=== PATIENT | male | born 1985 | race Hispanic/Latino ===

== ENCOUNTER 2022-05-31 09:08 | Inpatient (IN) | payer OTHER, SELFPAY ==
[2022-05-31] VITALS (21 sets, daily range): BP systolic 106–123; BP diastolic 56–86; PULSE 72–91; RESP 15–30; TEMP 36.6–38.1; O2SAT 96–99; BMI 36.2
[2022-05-31 09:53] LABS: Add Manual Diff / Slide Review NO; Basophils Absolute Auto 0 /uL (0-100); Basophils Percent Auto 0.3 % (0-2); Eosinophils Absolute Auto 0 /uL (0-450); Eosinophils Percent Auto 0.2 % (2-4); Hematocrit 45.1 % (41-53); Hemoglobin 15.3 g/dL (13.5-17.5); Lymphocytes Absolute Auto 1400 /uL (1100-4500); Mean Corpuscular Hemoglobin 29.3 PG (26-34); Mean Corpuscular Volume 86.3 fL (80-100); Monocytes Absolute Auto 1100 /uL (0-900); Monocytes Percent Auto 7.7 % (3-14); Neutrophils Absolute Auto 11700 /uL (1500-7000); Neutrophils Percent Auto 81.8 % (50-75); Platelet Count 351 X10^3/uL (150-400); Red Blood Cell Count 5.23 X10^6/uL (4.5-5.9); Red Cell Distribution Width 13.2 % (11.6-14.8); White Blood Cell Count 14.4 X10^3/uL (4.5-11.0)
[2022-05-31 10:04] LABS: Appearance Urine UA CLEAR; Bilirubin Urine UA NEGATIVE (NEGATIVE); Color Urine UA YELLOW; Glucose Urine UA NEGATIVE (Negative); Ketones Urine UA NEGATIVE (NEGATIVE); Leukocyte Esterase Urine UA NEGATIVE (NEGATIVE); Nitrite Urine UA NEGATIVE (Negative); Occult Blood Urine UA NEGATIVE (Negative); Protein Urine UA NEGATIVE (Negative); Specific Gravity Urine UA >=1.030 (1.000-1.035); pH Urine UA 5.5 (4.5-8.0)
[2022-05-31 10:07] LABS: Lactate (Lactic Acid) 1.1 mmol/L (0.7-2.1)
[2022-05-31 10:08] LABS: Alanine Aminotransferase 61 IU/L (<50); Albumin 4.5 g/dL (3.5-5.0); Albumin Globulin Ratio 1.2 (1.0-2.8); Alkaline Phosphatase 180 U/L (38-126); Aspartate Aminotransferase 57 IU/L (17-59); Bilirubin Total 1.6 mg/dL (0.2-1.3); Blood Urea Nitrogen 12 mg/dL (9-20); Calcium 9.1 mg/dL (8.4-10.2); Carbon Dioxide 25 mmol/L (22-32); Chloride 99 mmol/L (98-107); Creatine Kinase 43 U/L (55-170); Estimated Glomerular Filt Rate > 60 mL/min (>60); Globulin 3.8 g/dL (1.7-4.1); Glucose 100 mg/dL (70-100); HEMOLYSIS < 15 (0-50); Lipase 31 U/L (23-300); Sodium 138 mmol/L (137-145); Total Protein 8.3 g/dL (6.3-8.2)
[2022-05-31 10:15] LABS: Bacteria Urine Few (2-10); Culture Indicated Urine Cult Not Indicated; Mucus Urine 2+ (Negative); RBC Urine None Seen (0-5/HPF); Squamous Epithelial Cell Urine None Seen (0-5/HPF); WBC Urine 0-1/HPF (0-5/HPF)
[2022-05-31 10:24] LABS: Procalcitonin 0.09 ng/mL (<0.5)
--- NOTE | 2022-05-31 10:37 | DI.CT.S_ITS ---
PROCEDURE: CT ABDOMEN PELVIS W CON INDICATIONS: suprapubic pain x 2 weeks TECHNIQUE: After the administration of oral and IV contrast, axial sections were acquired from the lung bases to the pubic symphysis. Coronal and sagittal reformats were performed. For radiation dose reduction, the following was used: automated exposure control, adjustment of mA and/or kV according to patient size. COMPARISON: None. FINDINGS: Image quality: Excellent. Lung bases: Unremarkable. Heart: No significant findings. ABDOMEN: Liver: Unremarkable. Gallbladder: Unremarkable. Biliary ducts: Unremarkable. Pancreas: Unremarkable. Spleen: Unremarkable. Adrenal Glands: Unremarkable. Kidneys and Ureters: Unremarkable. Stomach and Bowel: Stomach, small bowel loops, and colon are normal in caliber. There multiple colonic diverticula. There is segmental thickening of the sigmoid colon with associated inflammatory stranding, compatible with acute diverticulitis. There is a small irregular fluid collection within the mesentery adjacent to the sigmoid colon measuring 2.7 x 2.5 cm, suspicious for phlegmon or early abscess formation. No drainable fluid collections. Appendix is normal. There is a trace amount of free fluid adjacent to the appendix, likely secondary to spread of inflammation/infection from acute diverticulitis. Peritoneum: Trace abnormal intraperitoneal fluid. No free air. Ventral Wall: No hernia. Abdominal Nodes: No retroperitoneal or mesenteric adenopathy by size criteria. Vessels: Aorta and inferior vena cava are normal in size. PELVIS: Pelvic Organs: Unremarkable. Bladder: Unremarkable. Pelvic Nodes: No enlarged lymph nodes. Miscellaneous: No inguinal hernias are seen. Bones: Unremarkable. IMPRESSION: 1. Colonic diverticula are present. There is segmental thickening of the sigmoid colon with associated inflammatory stranding consistent with acute diverticulitis. A small 2.7 x 2.5 cm irregular fluid collection is seen within the mesentery adjacent to the sigmoid colon, compatible with phlegmon or early abscess. There are no percutaneously drainable fluid collections. After adequate treatment of acute illness, a repeat CT suggested as colon cancer could have a similar CT appearance. 2. Dictated by: Ludmila Kruse M.D. on 05/31/2022 at 11:44 Approved by: Ludmila Kruse M.D. on 05/31/2022 at 11:50
--- NOTE | 2022-05-31 10:37 | ED_ITS ---
HPI - Abdominal Pain General Chief Complaint: Abdominal Pain Stated Complaint: severe abd pain as of 2 days ago, no bow movement Time Seen by Provider: 05/31/22 09:30 Source: patient Mode of arrival: Ambulatory History of Present Illness HPI narrative: Patient is a 36-year-old male with no past medical history presenting with lower abdominal pain ongoing for the last 2 weeks. He was seen and evaluated at the [facility] couple of times for the same. He was put on a 5 day course of antibiotics which she finished for a possible UTI. He continued to have pain all across his lower abdomen. He is scheduled for a CT this week. He had a fever yesterday of 100.5. He says that the last 2 days he is had some mucousy like stool previously we he was having normal bowel movements. No nausea no vomiting no chest pain or shortness of breath. Not complaining of painful frequent urination. He noticed yesterday when he sat down he was having a little bit of scrotal irritation but not significant or localized testicular pain. Denies any flank pain. Related Data Home Medications Medication Instructions Recorded Confirmed No Known Home Medications 05/31/22 05/31/22 Allergies Allergy/AdvReac Type Severity Reaction Status Date / Time No Known Drug Allergies Allergy Verified 05/31/22 09:28 Review of Systems Review of Systems ROS Unobtainable: All systems reviewed & are unremarkable except as noted in HPI and below Patient History Social History household members: spouse Smoking Status: Smoker, status unknown tobacco type: smokeless tobacco alcohol intake frequency: other Substance Use Type: does not use Exam Initial Vital Signs Initial Vital Signs: Vital Signs Temperature 97.9 F 05/31/22 09:22 Pulse Rate 82 05/31/22 09:22 Respiratory Rate 18 05/31/22 09:22 Blood Pressure 121/86 05/31/22 09:22 Pulse Oximetry 99 05/31/22 09:22 Oxygen Delivery Method 05/31/22 09:22 GENERAL: Alert pleasant 86-year-old male and in no acute distress. HEENT: Head atraumatic,EOMI, pupils reactive, face symmetric, moist mucous membranes CARDIOVASCULAR: Regular rate and rhythm without murmurs, rubs or gallops. RESPIRATORY: Breath sounds equal bilaterally, no wheezes rales or rhonchi. ABDOMEN: Soft, mild suprapubic lower quadrant pain no guarding no rebound : No CVA tenderness EXTREMITIES: Normal range of motion, no clubbing or edema. Neurovascularly intact NEUROLOGICAL: Alert and oriented x4. SKIN: Warm, dry, no laceration, no petechiae, no rashes or lesions. Course Orders Ordered: ED Orders 05/31/22 10:37 CT abdomen pelvis w con Stat 05/31/22 12:30 COVID19 -Nasal RAPID/Pre-Proc Stat Sodium Chloride (Normal Saline 0.9%) 1,000 mls @ 150 mls/hr IV CONT TREMAYNE Last Admin: 05/31/22 12:42 Dose: 150 mls/hr Documented By: PILY Discontinued Medications Sodium Chloride (Normal Saline 0.9%) 1,000 mls @ 1,000 mls/hr IV BOLUS ONE Stop: 05/31/22 11:56 Last Infusion: 05/31/22 12:05 Dose: 0 mls/hr Documented By: Admin: 05/31/22 10:58 Dose: 1,000 mls/hr Documented By: PILY Piperacillin Sod/Tazobactam (Sod 4.5 gm/ Sodium Chloride) 100 mls @ 200 mls/hr IV NOW ONE Stop: 05/31/22 12:26 Last Infusion: 05/31/22 13:25 Dose: 0 mls/hr Documented By: Admin: 05/31/22 12:41 Dose: 200 mls/hr Documented By: PILY Vital Signs Vital signs: Vital Signs - 8 hr 05/31/22 11:30 Pulse Rate 79 Pulse Oximetry 99 MDM - Abdominal Pain Lab Data 05/31/22 09:40 05/31/22 09:40 Labs: Lab Results 05/31/22 05/31/22 05/31/22 Range/Units 09:40 09:40 09:40 WBC 14.4 H (4.5-11.0) X10^3/uL RBC 5.23 (4.5-5.9) X10^6/uL Hgb 15.3 (13.5-17.5) g/dL Hct 45.1 (41-53) % MCV 86.3 (80-100) fL MCH 29.3 (26-34) PG MCHC 34.0 (30-36) % RDW 13.2 (11.6-14.8) % Plt Count 351 (150-400) X10^3/uL Neut % (Auto) 81.8 H (50-75) % Lymph % (Auto) 10.0 L (25-40) % [place] % (Auto) 7.7 (3-14) % Eos % (Auto) 0.2 L (2-4) % Baso % (Auto) 0.3 (0-2) % Neut # (Auto) 54959 H (8466-3097) /uL Lymph # (Auto) 1400 (5100-4221) /uL [place] # (Auto) 1100 H (0-900) /uL Eos # (Auto) 0 (0-450) /uL Baso # (Auto) 0 (0-100) /uL Sodium 138 (137-145) mmol/L Potassium 4.0 (3.4-5.1) mmol/L Chloride 99 (98-107) mmol/L Carbon Dioxide 25 (22-32) mmol/L BUN 12 (9-20) mg/dL Creatinine 0.86 (0.66-1.25) mg/dL Estimated GFR > 60 (>60) mL/min BUN/Creatinine Ratio 14.0 (6-22) Glucose 100 (70-100) mg/dL Lactate 1.1 (0.7-2.1) mmol/L Calcium 9.1 (8.4-10.2) mg/dL Total Bilirubin 1.6 H (0.2-1.3) mg/dL AST 57 (17-59) IU/L ALT 61 H (<50) IU/L Alkaline Phosphatase 180 H (38-126) U/L Total Creatine Kinase 43 L (55-170) U/L Total Protein 8.3 H (6.3-8.2) g/dL Albumin 4.5 (3.5-5.0) g/dL Globulin 3.8 (1.7-4.1) g/dL Albumin/Globulin Ratio 1.2 (1.0-2.8) Lipase 31 (23-300) U/L Procalcitonin (<0.5) ng/mL Urine Color Urine Appearance Urine pH (4.5-8.0) Ur Specific [place] (1.000-1.035) Urine Protein (Negative) Urine Glucose (UA) (Negative) g/dL Urine Ketones (NEGATIVE) Urine Occult Blood (Negative) Urine Nitrate (Negative) Urine Bilirubin (NEGATIVE) Urine Urobilinogen (0.2) E.U./dL Ur Leukocyte Esterase (NEGATIVE) Urine RBC (0-5/HPF) Urine WBC (0-5/HPF) Ur Squamous Epith Cells (0-5/HPF) Urine Bacteria (None) Urine Mucus (Negative) Ur Culture Indicated? 05/31/22 05/31/22 Range/Units 09:40 09:50 WBC (4.5-11.0) X10^3/uL RBC (4.5-5.9) X10^6/uL Hgb (13.5-17.5) g/dL Hct (41-53) % MCV (80-100) fL MCH (26-34) PG MCHC (30-36) % RDW (11.6-14.8) % Plt Count (150-400) X10^3/uL Neut % (Auto) (50-75) % Lymph % (Auto) (25-40) % [place] % (Auto) (3-14) % Eos % (Auto) (2-4) % Baso % (Auto) (0-2) % Neut # (Auto) (9231-4559) /uL Lymph # (Auto) (8695-4204) /uL [place] # (Auto) (0-900) /uL Eos # (Auto) (0-450) /uL Baso # (Auto) (0-100) /uL Sodium (137-145) mmol/L Potassium (3.4-5.1) mmol/L Chloride (98-107) mmol/L Carbon Dioxide (22-32) mmol/L BUN (9-20) mg/dL Creatinine (0.66-1.25) mg/dL Estimated GFR (>60) mL/min BUN/Creatinine Ratio (6-22) Glucose (70-100) mg/dL Lactate (0.7-2.1) mmol/L Calcium (8.4-10.2) mg/dL Total Bilirubin (0.2-1.3) mg/dL AST (17-59) IU/L ALT (<50) IU/L Alkaline Phosphatase (38-126) U/L Total Creatine Kinase (55-170) U/L Total Protein (6.3-8.2) g/dL Albumin (3.5-5.0) g/dL Globulin (1.7-4.1) g/dL Albumin/Globulin Ratio (1.0-2.8) Lipase (23-300) U/L Procalcitonin 0.09 (<0.5) ng/mL Urine Color Yellow Urine Appearance Clear Urine pH 5.5 (4.5-8.0) Ur Specific [place] >=1.030 H (1.000-1.035) Urine Protein Negative (Negative) Urine Glucose (UA) Negative (Negative) g/dL Urine Ketones Negative (NEGATIVE) Urine Occult Blood Negative (Negative) Urine Nitrate Negative (Negative) Urine Bilirubin Negative (NEGATIVE) Urine Urobilinogen 1.0 (0.2) E.U./dL Ur Leukocyte Esterase Negative (NEGATIVE) Urine RBC None seen (0-5/HPF) Urine WBC 0-1/hpf (0-5/HPF) Ur Squamous Epith Cells None seen (0-5/HPF) Urine Bacteria Few (2-10) H (None) Urine Mucus 2+ H (Negative) Ur Culture Indicated? Cult not indicated MDM Narrative Medical decision making narrative: Patient healthy 36-year-old male ongoing abdominal discomfort the last 2 weeks. He was previously on antibiotics symptoms did not improve. Developed fever yesterday. He is tender across his lower abdomen. Found have leukocytosis of 14 without elevated lactate or procalcitonin. Urinalysis does have bacteria but no leukocytes or nitrates. Started having some mucousy like stools yesterday as well. Electrolytes today are reassuring. Bilirubin today is 1.6, ALT patient is offered Toradol for pain however he declines at this time. CT does show diverticulitis with abscess. He is given Zosyn. I discussed case with Dr. Higuera call surgery who is happy to accept. Discharge Plan Departure Patient Disposition: Admitted as Observation Clinical Impression: Diverticulitis of intestine with abscess Admit Date/Time: 05/31/22 12:29 Admit Provider: Efraín Higuera
[2022-05-31] MEDS: SODIUM CHLORIDE 0.9% 1,000 ML 1000 ML IV (10:58)
[2022-05-31] MEDS: PIPERACILLIN/TAZO 4.5 GM in SODIUM CHLORIDE 0.9% 100 ML IV (12:41)
[2022-05-31] MEDS: SODIUM CHLORIDE 0.9% 1,000 ML 150 ML IV (12:42)
[2022-05-31 13:15] LABS: COVID19 -Nasal RAPID Negative (Negative)
[2022-05-31] MEDS: IBUPROFEN 600 MG TABLET PO (21:26)
[2022-05-31] MEDS: ACETAMINOPHEN 325 MG TABLET 650 MG PO (21:26)
[2022-05-31] MEDS: LACTATED RINGERS 1,000 ML 100 ML IV (21:27)
[2022-05-31] MEDS: PIPERACILLIN/TAZO 3.375 GM in SODIUM CHLORIDE 0.9% 100 ML IV (23:08)
[2022-06-01] VITALS (12 sets, daily range): BP systolic 93–143; BP diastolic 54–76; PULSE 60–82; RESP 16–19; TEMP 35.9–37.5; O2SAT 96–100
[2022-06-01] MEDS: IBUPROFEN 600 MG TABLET PO ×3 (03:02→20:40)
[2022-06-01] MEDS: ACETAMINOPHEN 325 MG TABLET 650 MG PO ×2 (03:02→07:59)
[2022-06-01] MEDS: PIPERACILLIN/TAZO 3.375 GM in SODIUM CHLORIDE 0.9% 100 ML IV ×3 (06:07→20:36)
[2022-06-01 06:49] LABS: BUN Creatinine Ratio 13.8 (6-22); Blood Urea Nitrogen 11 mg/dL (9-20); Calcium 8.2 mg/dL (8.4-10.2); Carbon Dioxide 25 mmol/L (22-32); Chloride 106 mmol/L (98-107); Estimated Glomerular Filt Rate > 60 mL/min (>60); Glucose 92 mg/dL (70-100); HEMOLYSIS < 15 (0-50); Potassium 3.6 mmol/L (3.4-5.1); Sodium 139 mmol/L (137-145)
[2022-06-01 06:54] LABS: Add Manual Diff / Slide Review NO; Basophils Absolute Auto 0 /uL (0-100); Basophils Percent Auto 0.2 % (0-2); Eosinophils Absolute Auto 100 /uL (0-450); Eosinophils Percent Auto 0.7 % (2-4); Hematocrit 39.2 % (41-53); Hemoglobin 13.6 g/dL (13.5-17.5); Lymphocytes Absolute Auto 1400 /uL (1100-4500); Lymphocytes Percent Auto 13.7 % (25-40); Mean Corpuscular HGB Conc 34.6 % (30-36); Mean Corpuscular Hemoglobin 29.6 PG (26-34); Mean Corpuscular Volume 85.7 fL (80-100); Monocytes Absolute Auto 1000 /uL (0-900); Monocytes Percent Auto 9.6 % (3-14); Neutrophils Absolute Auto 7500 /uL (1500-7000); Neutrophils Percent Auto 75.8 % (50-75); Platelet Count 299 X10^3/uL (150-400); Red Blood Cell Count 4.58 X10^6/uL (4.5-5.9); Red Cell Distribution Width 12.9 % (11.6-14.8); White Blood Cell Count 9.9 X10^3/uL (4.5-11.0)
[2022-06-01] MEDS: LACTATED RINGERS 1,000 ML 100 ML IV (08:00)
[2022-06-01] MEDS: HYDROMORPHONE 1 MG INJ IV ×2 (08:03→15:02)
[2022-06-01] MEDS: ENOXAPARIN 40 MG/0.4 ML SYRINGE SUBCUT (10:16)
--- NOTE | 2022-06-01 13:45 | CM.DANOTE ---
Patient is a 36 yo male who was admitted on 05/31/22 for Severe Abd Pain. Pt has [employer] for insurance and his PCP is at the [facility]. EMR was reviewed. Per ED MD, Surgeon accepted admission for leukocytosis, diverticulitis. Surgeon Consult pending to determine course of treatment needed. SW met briefly bedside with pt and explained role and he confirms he lives in [place] with his spouse and is an active [employer] and works and is independent with ADL's at baseline. Pt has no hx of admission, HH or SNF and preference is home via family POV and does not anticipate any needs. Plan: SW to follow closely for Surgeon recommendations towards determining any discharge planning needs. [facility] Discharge Planning/Care Management CM Discharge Assessment Start: 06/01/22 13:42 Freq: Status: Active Protocol: Document 06/01/22 13:42 BF (Rec: 06/01/22 13:43 BF [id number]) Discharge Planning Assessment Assigned [employer] [facility] DPOA/Assigned Designee Name informally spouse Advance Directives? No Advance Directives on File No History Provided By Patient,Medical Record Has Patient been admitted in last 30 No days? Prior Living Arrangements House Household Members spouse Type of transporation used prior to Drives own vehicle admit Independent with ADL's Yes Is patient alert and oriented? Yes Barriers to Discharge No Discharge Plan Home Transportation Arrangement Likely spouse to transport at d/c Referrals Initiated None needed Additional Comment Pending Surgeon recommendations Review Status In Process Please Provide Date Initial DC 06/01/22 Assessment Was Performed Next Review Type Continued Stay Review
--- NOTE | 2022-06-01 14:10 | P.HP_ITS ---
History of Present Illness History of Present Illness Date Patient Seen: 06/01/22 Chief complaint: severe abd pain as of 2 days ago, no bow movement Narrative: Mr. Boykin is a 36-year-old male who presented to the emergency room with abdominal pain. Says he is not been well for at least 2 weeks now. It started out with chills and pain in his joints as well as frequent urination and fever. He was diagnosed with a urinary tract infection versus other gi infection and was given 5 days of antibiotics. After that he has noticed just slow progressive worsening of his abdominal pain since then. The pain has progressed to the point where especially it is uncomfortable when he is urinating. He describes the pain is ?needles? also has the same needle like pain in his lower abdomen when he passes a bowel movement. Because the pain is just continuing to worsen and worsen he came to the emergency room to be evaluated. CT scan showed diverticulitis with a localized fluid collection. 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 No problems with anesthesia with those surgeries or in his family history. His father did get diagnosed with colon cancer in his early 40s and had an operation at the time. His father has been recently looking unwell and he wonders if the cancer is come back but he knows that it previously had been cured. He himself has never had a colonoscopy. He is feeling a lot better today than he was when he presented into the emergency room. He says his pain is much improved. He is feeling very hungry. Patient History Family & Social History Social History: household members spouse Prior Living Arrangements House Safety & Behavioral: Feels Safe in Current Yes Environment Been Physically Hurt or No Threatened By a Person Tobacco & Substance use: Tobacco type cigarettes,smokeless tobacco Smoking Status Smoker, status unknown alcohol intake frequency other Substance Use Type does not use Meds Home Medications and Allergies Home Medications Medication Instructions Recorded Confirmed Type No Known Home Medications 05/31/22 05/31/22 History Allergies Allergy/AdvReac Type Severity Reaction Status Date / Time No Known Drug Allergies Allergy Verified 05/31/22 09:28 Exam Vital Signs (past 8 hours): - 06/01/22 07:50 06/01/22 12:00 Temperature 96.6 F L 97.5 F L Pulse Rate 66 64 Respiratory Rate 18 16 Blood Pressure 99/54 L 93/64 Pulse Oximetry 98 99 Oxygen Flow Rate 0 0 Oxygen Delivery Method Room Air Oxygen Flow Rate 0 Const General: cooperative, healthy appearing and comfortable [facility] Head: normal to inspection and normocephalic Resp Effort & Inspection: normal respiratory effort and able to speak in complete sentences Cardio Pulses: radial pulses present GI Palpation: soft and tender (Especially left lower quadrant. Moderate tenderness bilateral lower quadra) Neuro General: patient alert, patient awake, patient oriented x3 and gait normal Objective Labs 06/01/22 06:04 06/01/22 06:04 Labs: Laboratory Results - last 24 hr 06/01/22 06/01/22 06:04 06:04 WBC 9.9 RBC 4.58 Hgb 13.6 Hct 39.2 L MCV 85.7 MCH 29.6 MCHC 34.6 RDW 12.9 Plt Count 299 Neut % (Auto) 75.8 H Lymph % (Auto) 13.7 L [place] % (Auto) 9.6 Eos % (Auto) 0.7 L Baso % (Auto) 0.2 Neut # (Auto) 7500 H Lymph # (Auto) 1400 [place] # (Auto) 1000 H Eos # (Auto) 100 Baso # (Auto) 0 Sodium 139 Potassium 3.6 Chloride 106 Carbon Dioxide 25 BUN 11 Creatinine 0.80 Estimated GFR > 60 BUN/Creatinine Ratio 13.8 Glucose 92 Calcium 8.2 L Assessment & Plan Assessment and plan (1) Diverticulitis of intestine with abscess: Status: Acute Plan I recommend IV antibiotics. And advance diet as tolerated. We will follow his white blood cell count and when his pain is under control his white count is normal and he is tolerating regular food he can be discharged home with a 10-14 day course of antibiotics. Sometime in that 10-14 day range she should follow up general surgery clinic to arrange a colonoscopy. Also if he is not significantly prove improved in his pain repeat CT scan might be indicated in that timeframe. If for any reason things go in the wrong direction he should call and contact us. He has something important that needs to be done on Wednesday and is planning to try to be ready for discharge on Wednesday that is tomorrow. I did encourage him to understand that he has bad infection and that it may take time for him to recover but we will see how he does and if he is meeting discharge criteria tomorrow then we will send him home. Time Spent With Patient Critical Care time: I spent a total of [] minutes of critical care time on this patient's care today; this time is exclusive of procedural time. Quality VTE Deep Vein Thrombosis/Pulmonary Embolism Present on Admission: No
[2022-06-01] MEDS: PSYLLIUM HUSK 1 PACKET PO ×2 (15:04→20:37)
[2022-06-02 01:00] VITALS: BP 100/66; PULSE 75; RESP 17; TEMP 36.3; O2SAT 99
[2022-06-02 03:00] VITALS: O2SAT 99
[2022-06-02 04:39] LABS: Add Manual Diff / Slide Review NO; Basophils Absolute Auto 0 /uL (0-100); Basophils Percent Auto 0.3 % (0-2); Eosinophils Absolute Auto 100 /uL (0-450); Eosinophils Percent Auto 1.3 % (2-4); Hematocrit 40.2 % (41-53); Hemoglobin 13.8 g/dL (13.5-17.5); Lymphocytes Absolute Auto 1600 /uL (1100-4500); Lymphocytes Percent Auto 25.6 % (25-40); Mean Corpuscular HGB Conc 34.4 % (30-36); Mean Corpuscular Hemoglobin 29.4 PG (26-34); Mean Corpuscular Volume 85.3 fL (80-100); Monocytes Absolute Auto 600 /uL (0-900); Monocytes Percent Auto 9.9 % (3-14); Neutrophils Absolute Auto 3900 /uL (1500-7000); Neutrophils Percent Auto 62.9 % (50-75); Platelet Count 318 X10^3/uL (150-400); Red Cell Distribution Width 12.9 % (11.6-14.8); White Blood Cell Count 6.2 X10^3/uL (4.5-11.0)
[2022-06-02 04:45] LABS: HEMOLYSIS < 15 (0-50); Sodium 140 mmol/L (137-145)
[2022-06-02 04:46] LABS: BUN Creatinine Ratio 10.2 (6-22); Blood Urea Nitrogen 9 mg/dL (9-20); Calcium 8.1 mg/dL (8.4-10.2); Carbon Dioxide 30 mmol/L (22-32); Chloride 106 mmol/L (98-107); Estimated Glomerular Filt Rate > 60 mL/min (>60); Glucose 92 mg/dL (70-100); Potassium 3.9 mmol/L (3.4-5.1)
[2022-06-02 05:00] VITALS: BP 101/62; PULSE 64; RESP 14; TEMP 36.9; O2SAT 98
[2022-06-02] MEDS: PIPERACILLIN/TAZO 3.375 GM in SODIUM CHLORIDE 0.9% 100 ML IV (06:06)
[2022-06-02 07:00] VITALS: O2SAT 98
[2022-06-02 08:30] VITALS: BP 113/66; PULSE 66; RESP 14; TEMP 36.7; O2SAT 98
[2022-06-02] MEDS: PSYLLIUM HUSK 1 PACKET PO (09:33)
[2022-06-02] MEDS: ENOXAPARIN 40 MG/0.4 ML SYRINGE SUBCUT (09:33)
[2022-06-02] MEDS: IBUPROFEN 600 MG TABLET PO (09:33)
[2022-06-02 11:00] VITALS: O2SAT 98
== END 2022-06-02 12:15 | disposition home or self-care (01) | DRG 391 ==
LOC: ED 10:44 → AC 14:05
PROVIDERS: Admitting Provider Surgery; Emergency Provider Emergency Medicine; Referring Provider Emergency Medicine; Visit Provider Surgery
DX: K57.20 Diverticulitis of large intestine with perforation and abscess without bleeding (principal); K65.1 Peritoneal abscess; Z20.822 Contact with and (suspected) exposure to COVID-19; F17.210 Nicotine dependence, cigarettes, uncomplicated
CPT/HCPCS: 36415; 74177; 80048; 80053; 81001; 82550; 83605; 83690; 84145; 85025; 87040; 87635; 96365; 99222; 99284; C9803; J1170; J1650; J2543; Q9967

== ENCOUNTER 2022-07-17 00:40 | Inpatient (IN) | payer OTHER, SELFPAY ==
[2022-05-31 17:14] VITALS: BMI 36.2
--- NOTE | 2022-07-17 00:47 | ED_ITS ---
HPI - General Adult General Chief complaint: Abdominal Pain Stated complaint: Prep for colonoscopy/abd.cramping Time Seen by Provider: 07/17/22 00:47 History of Present Illness HPI narrative: 36-year-old gentleman with episode of diverticulitis in May in follow-up as scheduled for colonoscopy later today and started his bowel prep last night. He drank the 1st bottle of liquid and had no difficulties with bowel movements starting. Around 8:00 p.m. last night began having significantly increased abdominal pain and cramping. He is had 1 bowel movement that is fairly watery s alannah 8:00 p.m.. States he is not passed any gas since then. Presents complaining of severe diffuse abdominal pain worse than with the pain he had with his original diverticulitis. He has not had any fevers, cough, chills. He is nauseated but has not had any overt vomiting. No headache, chest pain, palpitations Related Data Previous Rx's Medication Instructions Recorded amoxicillin 500 mg-potassium 1 tab PO Q8H #30 tabs 06/02/22 clavulanate 125 mg tablet (Augmentin) amoxicillin 500 mg-potassium 1 tab PO TID #36 tabs 06/02/22 clavulanate 125 mg tablet (Augmentin) hydrocodone 5 mg-acetaminophen 325 1 tab PO Q8H PRN pain #10 tabs 06/02/22 mg tablet ibuprofen 600 mg tablet 600 mg PO Q6H #30 tabs 06/02/22 oxycodone-acetaminophen 5 mg-325 2 tab PO Q6H PRN Pain, Severe 06/02/22 mg tablet (7-10) #20 tabs psyllium husk (aspartame) 3.4 gram 1 packet PO BID #44 ea 06/02/22 oral powder packet (Metamucil Fiber Singles) Allergies Allergy/AdvReac Type Severity Reaction Status Date / Time No Known Drug Allergies Allergy Verified 05/31/22 09:28 Review of Systems Review of Systems Narrative: Pertinent positive and negative findings as per HPI Patient History Medical History (Updated 07/17/22 @ 02:52 by Phuong Song MD) Diverticulitis of intestine with abscess Social History household members: spouse Smoking Status: Never smoker Smoking Status: Smoker, status unknown tobacco type: smokeless tobacco alcohol intake frequency: other Substance Use Type: does not use Exam Initial Vital Signs Initial Vital Signs: Vital Signs Temperature 98.5 F 07/17/22 00:54 Pulse Rate 89 07/17/22 00:54 Respiratory Rate 18 07/17/22 00:54 Blood Pressure 121/83 07/17/22 00:54 Pulse Oximetry 99 07/17/22 00:54 Oxygen Delivery Method Room Air 07/17/22 00:54 General: pale, difficulty standing upright, in obvious distress with abdominal discomfort HEENT: Moist mucous membranes, normal sclera with reactive pupils, Respiratory: Lungs are clear to auscultation, no wheezing no rales no rhonchi. Full and symmetrical air movement Cardiac: Regular rate and rhythm no murmurs no bruits Abdomen: Soft, diffusely tender without rebound or guarding, hypoactive to absent bowel tones no flank pain Skin: pale with mild diaphoresis, no rashes Neurologic: Grossly neurologically intact with no obvious asymmetries or abnormalities Extremities: No trauma, well perfused Psych: Cooperative, appropriate insight and affect Course Orders Ordered: ED Orders 07/17/22 00:55 XR abdomen min 2V Stat 07/17/22 01:39 CT abdomen pelvis w con Stat 07/17/22 01:43 COVID19 -Nasal RAPID Stat 07/17/22 01:45 Complete Blood Count AUTO DIFF Stat Comprehensive Metabolic Panel Stat Hydromorphone HCl (Hydromorphone 0.5 Mg Inj) 0.5 mg IV Q15MIN PRN PRN Reason: Pain, Last Admin: 07/17/22 01:46 Dose: 0.5 mg Documented By: ENEDELIA Sodium Chloride (Normal Saline 0.9%) 1,000 mls @ 1,000 mls/hr IV BOLUS ONE Stop: 07/17/22 02:38 Last Admin: 07/17/22 01:47 Dose: 1,000 mls/hr Documented By: ENEDELIA Discontinued Medications Dicyclomine HCl (Dicyclomine 10 Mg Capsule) 20 mg PO NOW ONE Stop: 07/17/22 00:56 Last Admin: 07/17/22 01:01 Dose: 20 mg Documented By: TOMMIE Ondansetron HCl (Ondansetron 4 Mg Odt) 4 mg SL NOW ONE Stop: 07/17/22 00:56 Last Admin: 07/17/22 01:01 Dose: 4 mg Documented By: TOMMIE Oxycodone/Acetaminophen (Oxycodone/Acetaminophen 5/325 Tablet) 1 tab PO NOW ONE Stop: 07/17/22 00:56 Last Admin: 07/17/22 01:01 Dose: 1 tab Documented By: TOMMIE Vital Signs Vital signs: Vital Signs - 8 hr 07/17/22 00:54 Temperature 98.5 F Pulse Rate 89 Respiratory Rate 18 Blood Pressure 121/83 Pulse Oximetry 99 Oxygen Delivery Method Room Air Medical Decision Making Lab Data 07/17/22 01:45 07/17/22 01:45 Labs: Lab Results 07/17/22 07/17/22 Range/Units 01:45 01:45 WBC 10.8 (4.5-11.0) X10^3/uL RBC 5.57 (4.5-5.9) X10^6/uL Hgb 16.5 (13.5-17.5) g/dL Hct 48.0 (41-53) % MCV 86.3 (80-100) fL MCH 29.6 (26-34) PG MCHC 34.3 (30-36) % RDW 14.2 (11.6-14.8) % Plt Count 269 (150-400) X10^3/uL Neut % (Auto) 90.1 H (50-75) % Lymph % (Auto) 5.2 L (25-40) % [place] % (Auto) 4.4 (3-14) % Eos % (Auto) 0.1 L (2-4) % Baso % (Auto) 0.2 (0-2) % Neut # (Auto) 9800 H (4856-6792) /uL Lymph # (Auto) 600 L (4682-0634) /uL [place] # (Auto) 500 (0-900) /uL Eos # (Auto) 0 (0-450) /uL Baso # (Auto) 0 (0-100) /uL Sodium 138 (137-145) mmol/L Potassium 4.4 (3.4-5.1) mmol/L Chloride 101 (98-107) mmol/L Carbon Dioxide 27 (22-32) mmol/L BUN 13 (9-20) mg/dL Creatinine 0.80 (0.66-1.25) mg/dL Estimated GFR > 60 (>60) mL/min BUN/Creatinine Ratio 16.3 (6-22) Glucose 106 H (70-100) mg/dL Calcium 8.9 (8.4-10.2) mg/dL Total Bilirubin 1.8 H (0.2-1.3) mg/dL AST 33 (17-59) IU/L ALT 35 (<50) IU/L Alkaline Phosphatase 65 (38-126) U/L Total Protein 7.8 (6.3-8.2) g/dL Albumin 4.6 (3.5-5.0) g/dL Globulin 3.2 (1.7-4.1) g/dL Albumin/Globulin Ratio 1.4 (1.0-2.8) MDM Narrative Medical decision making narrative: CC: Severe crampy abdominal pain starting at 8:00 a.m. last night currently mid bowel prep with anticipation of colonoscopy later today Complicating co-morbidities: recent diverticulitis Data collected from: patient, significant other Medical records reviewed: hospital admission June 01 with diverticulitis complicated by abscess is reviewed. Differential considered: Cramping secondary to bowel prep, bowel obstruction, bowel perforation, Exam documented above, pertinent findings include: significant pain, with crampy abdominal discomfort but no surgical abdomen Lab Test results independently reviewed as above. Pertinent findings: CBC does not show significant leukocytosis, white count is 10.8 however he does have a significant left shift with 90.1% neutrophils. No significant anemia but mild volume contraction is appreciated chemistries are relatively unremarkable with bilirubin at 1.82 compared to 1.6 6 weeks previously. Independently reviewed EKG as above Imaging studies independently reviewed: Initial Abd XR shows nonspecific bowel gas pattern with scattered air-fluid levels in the right abdomen possibility of obstruction remains well within the Differential CT abd/pelvis Shows an ill-defined gas and fluid collection in the upper pelvis, immediately superior to a segment of the sigmoid colon with adjacent fat stranding. Multiple diverticuli are noted. This probably represents a small contained perforation or diverticular abscess measuring 1.6 x 1.8 x 1.8 cm. There is no pneumoperitoneum above this level. No bowel obstruction is appreciated. otherwise unremarkable CT scan. Re-evaluations: 1:40am after Percocet, Bentyl and Zofran his pain is come down from 10 to a 9. He is still unable to stand up straight with significant pain along the right side of his abdomen. Still no additional bowel movements and is not passing gas. Significant other notes that he has feculent smelling eructations which has changed dramatically over the last couple of hours. F indings including concern for possible bowel obstruction are reviewed with him. In light of this will add IV, IV fluids, additional parenteral narcotics and CT scan of the abdomen. 2:30am Zosyn added after review of CT. Patient is re-evaluated. after IV Dilaudid he is definitely feeling better still with some tenderness. CT scan is reviewed with him. The colonoscopy scheduled for today was actually in [place] at the [facility]. After talking with the surgical garment fitter he was aware that he may well end up being referred to general surgery with possibility of a partial colectomy due to complicated diverticular disease. 250am Care is reviewed with Dr. Pappas, general surgery. Transition orders were written. Patient is started on Zosyn. Reason for admission, concerns and CT findings reviewed with the patient. Discharge Plan Departure Patient Disposition: Admitted as Observation Clinical Impression: Diverticular disease of intestine with perforation and abscess Admit Date/Time: 07/17/22 02:47 Admit Provider: Shayy Pappas
[2022-07-17 00:54] VITALS: BP 121/83; PULSE 89; RESP 18; TEMP 36.9; O2SAT 99; BMI 36.2
--- NOTE | 2022-07-17 00:55 | DI.RAD.S_ITS ---
P the ROCEDURE: XR ABDOMEN MIN 2V INDICATIONS: Acute abdominal pain, diffuse. Partial bowel prep for colonoscopy TECHNIQUE: 2 views of the abdomen were acquired. COMPARISON: [facility], CT, CT ABDOMEN PELVIS W CON, 05/31/2022, 10:44. FINDINGS: Surgical changes and devices: None. Bowel: No pneumoperitoneum. The bowel gas pattern is nonspecific, with a few scattered air-fluid levels within nondistended bowel loops in the right abdomen. Soft tissues: No suspicious abdominal calcifications. Bones: No suspicious bony abnormalities. IMPRESSION: 1. Nonspecific bowel gas pattern with a few scattered air-fluid levels in the right abdomen. The differential includes an ileus, gastroenteritis, or obstruction. Dictated by: oNrman Oliveira M.D. on 07/17/2022 at 1:16 Approved by: Norman Oliveira M.D. on 07/17/2022 at 1:18
[2022-07-17] MEDS: OXYCODONE/ACETAMINOPHEN 5/325 TABLET 1 TAB PO (01:01)
[2022-07-17] MEDS: ONDANSETRON 4 MG ODT SL (01:01)
[2022-07-17] MEDS: DICYCLOMINE 10 MG CAPSULE 20 MG PO (01:01)
--- NOTE | 2022-07-17 01:39 | DI.CT.S_ITS ---
PROCEDURE: CT ABDOMEN PELVIS W CON INDICATIONS: acute abdominal pain TECHNIQUE: After the administration of intravenous contrast, axial sections acquired from the lung bases to the pubic symphysis. Coronal and sagittal reformats were performed. For radiation dose reduction, the following was used: automated exposure control, adjustment of mA and/or kV according to patient size. COMPARISON: [facility], CT, CT ABDOMEN PELVIS W CON, 05/31/2022, 10:44. FINDINGS: Image quality: Excellent. Lung bases: Unremarkable. Heart: No significant findings. ABDOMEN: Liver: Unremarkable. Gallbladder: Unremarkable. Biliary ducts: Unremarkable. Pancreas: Unremarkable. Spleen: Unremarkable. Adrenal Glands: Unremarkable. Kidneys and Ureters: Unremarkable. Stomach and Bowel: Stomach and small bowel loops appear unremarkable. Scattered colonic diverticula with randall diverticular inflammation in the proximal to mid sigmoid colon. There is a small locule of gas within a small focus of fluid noted within the left upper pelvis in close vicinity to inflamed diverticula which may represent a contained perforation versus early abscess formation. It measures approximately 1.6 x 1.8 x 1.8 cm. Peritoneum: No abnormal free fluid. No free air seen. Ventral Wall: There is a fat-containing umbilical hernia without acute inflammation. Abdominal Nodes: No retroperitoneal or mesenteric adenopathy by size criteria. Vessels: Aorta and inferior vena cava are normal in size. PELVIS: Pelvic Organs: Unremarkable. Bladder: Unremarkable. Pelvic Nodes: No enlarged lymph nodes. Miscellaneous: No inguinal hernias are seen. Bones: Unremarkable. IMPRESSION: 1. Scattered colonic diverticulosis with acute diverticulitis involving the sigmoid colon. There is a small contained perforation versus small diverticular abscess in the mid sigmoid colon. 2. Otherwise, unremarkable evaluation of the abdomen and pelvis. Acute findings were discussed with Dr. Song of the emergency department staff by the overnight radiologist at 0227 hrs. No significant discrepancy with the night custodian radiology preliminary report. Dictated by: Maxwell Swenson M.D. on 07/17/2022 at 7:05 Approved by: Maxwell Swenson M.D. on 07/17/2022 at 7:12
[2022-07-17] MEDS: HYDROMORPHONE 0.5 MG INJ IV ×5 (01:46→22:49)
[2022-07-17] MEDS: SODIUM CHLORIDE 0.9% 1,000 ML 1000 ML IV (01:47)
[2022-07-17 02:00] LABS: Add Manual Diff / Slide Review NO; Basophils Absolute Auto 0 /uL (0-100); Basophils Percent Auto 0.2 % (0-2); Eosinophils Absolute Auto 0 /uL (0-450); Eosinophils Percent Auto 0.1 % (2-4); Hemoglobin 16.5 g/dL (13.5-17.5); Lymphocytes Absolute Auto 600 /uL (1100-4500); Lymphocytes Percent Auto 5.2 % (25-40); Mean Corpuscular HGB Conc 34.3 % (30-36); Mean Corpuscular Hemoglobin 29.6 PG (26-34); Mean Corpuscular Volume 86.3 fL (80-100); Monocytes Absolute Auto 500 /uL (0-900); Monocytes Percent Auto 4.4 % (3-14); Neutrophils Absolute Auto 9800 /uL (1500-7000); Neutrophils Percent Auto 90.1 % (50-75); Platelet Count 269 X10^3/uL (150-400); Red Blood Cell Count 5.57 X10^6/uL (4.5-5.9); Red Cell Distribution Width 14.2 % (11.6-14.8); White Blood Cell Count 10.8 X10^3/uL (4.5-11.0)
[2022-07-17 02:06] LABS: Alanine Aminotransferase 35 IU/L (<50); Albumin 4.6 g/dL (3.5-5.0); Albumin Globulin Ratio 1.4 (1.0-2.8); Alkaline Phosphatase 65 U/L (38-126); Aspartate Aminotransferase 33 IU/L (17-59); BUN Creatinine Ratio 16.3 (6-22); Bilirubin Total 1.8 mg/dL (0.2-1.3); Blood Urea Nitrogen 13 mg/dL (9-20); Calcium 8.9 mg/dL (8.4-10.2); Carbon Dioxide 27 mmol/L (22-32); Chloride 101 mmol/L (98-107); Estimated Glomerular Filt Rate > 60 mL/min (>60); Globulin 3.2 g/dL (1.7-4.1); Glucose 106 mg/dL (70-100); HEMOLYSIS 34 (0-50); Potassium 4.4 mmol/L (3.4-5.1); Sodium 138 mmol/L (137-145); Total Protein 7.8 g/dL (6.3-8.2)
[2022-07-17] MEDS: PIPERACILLIN/TAZO 4.5 GM in SODIUM CHLORIDE 0.9% 100 ML IV ×2 (03:06→17:56)
[2022-07-17] MEDS: SODIUM CHLORIDE 0.9% 1,000 ML 125 ML IV ×4 (03:07→22:49)
[2022-07-17 03:14] LABS: COVID19 -Nasal RAPID Negative (Negative)
[2022-07-17 08:11] VITALS: BP 104/55; PULSE 92; O2SAT 98
--- NOTE | 2022-07-17 08:33 | PM.HP.1 ---
History of Present Illness History of Present Illness Date Patient Seen: 07/17/22 Time Patient Seen: 08:33 Chief complaint: Prep for colonoscopy/abd.cramping Narrative: Prepping for a colonoscopy when he began having obstructive symptoms. Previous diverticulitis episode in 06/04. No significant complaints other than acute abdominal pain, distension and vomitting with prep. CT scan shows persistent diverticulitis with associated abscess. [facility] Medical History Diverticulitis of intestine with abscess Social History household members: spouse Smoking Status: Never smoker Meds Home Medications and Allergies Home Medications Medication Instructions Recorded Confirmed Type amoxicillin 500 mg-potassium 1 tab PO Q8H #30 tabs 06/02/22 Rx clavulanate 125 mg tablet (Augmentin) amoxicillin 500 mg-potassium 1 tab PO TID #36 tabs 06/02/22 Rx clavulanate 125 mg tablet (Augmentin) hydrocodone 5 mg-acetaminophen 325 1 tab PO Q8H PRN pain #10 tabs 06/02/22 Rx mg tablet ibuprofen 600 mg tablet 600 mg PO Q6H #30 tabs 06/02/22 Rx oxycodone-acetaminophen 5 mg-325 2 tab PO Q6H PRN Pain, Severe 06/02/22 Rx mg tablet (7-10) #20 tabs psyllium husk (aspartame) 3.4 gram 1 packet PO BID #44 ea 06/02/22 Rx oral powder packet (Metamucil Fiber Singles) Allergies Allergy/AdvReac Type Severity Reaction Status Date / Time No Known Drug Allergies Allergy Verified 05/31/22 09:28 Review of Systems Review of Systems ROS: Yes All systems reviewed with the patient and are negative except as otherwise documented Exam Vital Signs (past 8 hours): - 07/17/22 00:54 07/17/22 08:11 Temperature 98.5 F Pulse Rate 89 92 H Respiratory Rate 18 Blood Pressure 121/83 104/55 L Pulse Oximetry 99 98 Oxygen Delivery Method Room Air Room Air Oxygen Delivery Method Room Air Const General: cooperative and comfortable Nutritional Appearance: average body habitus HENMT Head: normocephalic and atraumatic Eyes General: appearance normal, both eyes and all related structures Sclera: sclerae normal Neck Neck: trachea midline Resp Effort & Inspection: normal respiratory effort and able to speak in complete sentences Cardio Rate: tachycardic Rhythm: regular rhythm GI Palpation: soft Other: Left sided tenderness to palpation Skin General: turgor normal Neuro General: patient alert, patient awake and patient oriented x3 Cognition: normal cognition Psych Appearance: grossly normal Mental Status: mental status grossly normal Attitude: cooperative Judgment: judgment good Objective Labs 07/17/22 01:45 07/17/22 01:45 Labs: Laboratory Results - last 24 hr 07/17/22 07/17/22 07/17/22 01:45 01:45 02:45 WBC 10.8 RBC 5.57 Hgb 16.5 Hct 48.0 MCV 86.3 MCH 29.6 MCHC 34.3 RDW 14.2 Plt Count 269 Neut % (Auto) 90.1 H Lymph % (Auto) 5.2 L [place] % (Auto) 4.4 Eos % (Auto) 0.1 L Baso % (Auto) 0.2 Neut # (Auto) 9800 H Lymph # (Auto) 600 L [place] # (Auto) 500 Eos # (Auto) 0 Baso # (Auto) 0 Sodium 138 Potassium 4.4 Chloride 101 Carbon Dioxide 27 BUN 13 Creatinine 0.80 Estimated GFR > 60 BUN/Creatinine Ratio 16.3 Glucose 106 H Calcium 8.9 Total Bilirubin 1.8 H AST 33 ALT 35 Alkaline Phosphatase 65 Total Protein 7.8 Albumin 4.6 Globulin 3.2 Albumin/Globulin Ratio 1.4 SARS-CoV-2 (PCR) Negative Assessment & Plan Assessment & Plan narrative: Persistent ruptured diverticulitis with abscess Plan: IV antibiotics. Needs to have that portion of colon removed. No colonoscopy in the face of active diverticulitis due to higher risk of perforation. COVID-19 COVID-19 status: Negative Time Spent With Patient Time with patient: 30 to 49 minutes with 50% spent counseling/coordinating care
--- NOTE | 2022-07-17 09:42 | PC.NURSE ---
Spoke w/ Dr. Pappas who states pt will not go to OR today. Confirmed current diet order.
[2022-07-17 12:16] VITALS: BP 109/67; PULSE 85; O2SAT 98
--- NOTE | 2022-07-17 14:30 | CM.IDA ---
Initial DCP Assessment Patient is 36 y/o male who presents to due to concern for bowel obstruction upon preperation for Colonoscopy. Patient was admitted by Dr. Pappas, patient in need of surgery due to ruptured Diverticulitis with abscess. Patient has hx of Diverticulits in May 2022 and was recommended for outpt colonoscopy. Patient's PCP is at [facility], patient has [employer] insurance. CORRECTIONAL OFFICER SERGEANT enters room to meet with patient. Patient resides in [place] with spouse. Spouse present in room with patient. 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 Patient denies DCP needs but inquires if patient will need to delay deployment. Pending further surgeon evaluation. Plan: Patient to go into surgery tomorrow, likely no DCP needs. DCP to f/u with POC. Jennifer Ontiveros [facility] Discharge Planning/Care Management CM Discharge Assessment Start: 07/17/22 14:19 Freq: Status: Active Protocol: Document 07/17/22 14:19 LN (Rec: 07/17/22 14:30 LN [id number]) Discharge Planning Assessment Advance Directives? No Advance Directives on File No History Provided By Patient,Medical Record Has Patient been admitted in last 30 No days? Prior Living Arrangements House Household Members spouse Type of transporation used prior to Drives own vehicle admit Independent with ADL's Yes Is patient alert and oriented? Yes Discharge Plan Home Transportation Arrangement Likely spouse to transport at d/c Referrals Initiated None needed Additional Comment Pending Surgeon recommendations Please Provide Date Initial DC 07/17/22 Assessment Was Performed
[2022-07-17] MEDS: ONDANSETRON 4 MG/2 ML INJ IV (14:42)
[2022-07-17 21:16] VITALS: BP 113/76; PULSE 87; RESP 14; TEMP 37.1; O2SAT 98
[2022-07-18] MEDS: HYDROMORPHONE 0.5 MG INJ IV ×5 (03:20→21:30)
[2022-07-18] MEDS: PIPERACILLIN/TAZO 4.5 GM in SODIUM CHLORIDE 0.9% 100 ML IV ×3 (03:21→17:41)
[2022-07-18] MEDS: SODIUM CHLORIDE 0.9% 1,000 ML 125 ML IV ×2 (06:52→22:41)
[2022-07-18 07:08] VITALS: BP 134/62; PULSE 88; RESP 16; TEMP 37; O2SAT 98
[2022-07-18 09:20] LABS: Add Manual Diff / Slide Review NO; Basophils Absolute Auto 0 /uL (0-100); Basophils Percent Auto 0.1 % (0-2); Eosinophils Absolute Auto 0 /uL (0-450); Eosinophils Percent Auto 0.1 % (2-4); Hemoglobin 13.5 g/dL (13.5-17.5); Lymphocytes Absolute Auto 700 /uL (1100-4500); Lymphocytes Percent Auto 6.3 % (25-40); Mean Corpuscular HGB Conc 33.8 % (30-36); Mean Corpuscular Hemoglobin 29.1 PG (26-34); Mean Corpuscular Volume 85.9 fL (80-100); Monocytes Absolute Auto 500 /uL (0-900); Monocytes Percent Auto 4.5 % (3-14); Neutrophils Absolute Auto 10200 /uL (1500-7000); Platelet Count 204 X10^3/uL (150-400); Red Blood Cell Count 4.66 X10^6/uL (4.5-5.9); Red Cell Distribution Width 13.9 % (11.6-14.8); White Blood Cell Count 11.4 X10^3/uL (4.5-11.0)
--- NOTE | 2022-07-18 10:06 | PM.PN.1 ---
Subjective Subjective Date Patient Seen: 07/18/22 Time Patient Seen: 10:06 Interval history: Clinically unwell. No significant WBC or fevers. Not passing gas. Exam Vital Signs (past 8 hours): - 07/18/22 07:08 Temperature 98.6 F Pulse Rate 88 Respiratory Rate 16 Blood Pressure 134/62 Pulse Oximetry 98 Oxygen Delivery Method Room Air Oxygen Delivery Method Room Air Narrative Exam Narrative: lower abd tenderness, distention. No acute abdomen. Objective Labs 07/18/22 09:10 07/17/22 01:45 Labs: Laboratory Results - last 24 hr 07/18/22 09:10 WBC 11.4 H RBC 4.66 Hgb 13.5 Hct 40.0 L MCV 85.9 MCH 29.1 MCHC 33.8 RDW 13.9 Plt Count 204 Neut % (Auto) 89.0 H Lymph % (Auto) 6.3 L [place] % (Auto) 4.5 Eos % (Auto) 0.1 L Baso % (Auto) 0.1 Neut # (Auto) 81991 H Lymph # (Auto) 700 L [place] # (Auto) 500 Eos # (Auto) 0 Baso # (Auto) 0 PFSH Medical History Diverticulitis of intestine with abscess Social History household members: spouse Smoking Status: Never smoker Assessment & Plan Assessment & Plan narrative: Clinically unwell. CT reviewed and there is free fluid in pelvic with the acute diverticulitis +/- contained perforation. Plan: continue IV antibiotics. Adjust pain control to add Celebrex and gabapentin. May require sigmoid colectomy this hospital stay. Time Spent With Patient Time with patient: 30 to 49 minutes with 50% spent counseling/coordinating care
[2022-07-18] MEDS: CELECOXIB 200 MG CAPSULE PO ×2 (10:27→20:30)
[2022-07-18] MEDS: GABAPENTIN 300 MG CAPSULE PO ×3 (10:27→20:30)
[2022-07-18 12:40] VITALS: BMI 36.2
--- NOTE | 2022-07-18 12:57 | PC.NURSE ---
Pt sitting up in chair in room 202. Pt is awake alert and oirented x 4. Denies nausea or shortness of breath. States pain level is low unless he is moving around or standing up. Oriented to room, call light, bed controls and tv controls. Pt denies needs at this time and agrees to call for assistance as needed.
[2022-07-18 14:13] VITALS: BP 124/72; PULSE 96; RESP 17; TEMP 37.3; O2SAT 99
[2022-07-18 15:16] VITALS: BP 124/69; PULSE 81; RESP 17; TEMP 36.9; O2SAT 99
[2022-07-18 19:50] VITALS: BP 102/60; PULSE 88; RESP 20; TEMP 36.8; O2SAT 97
[2022-07-19] MEDS: PIPERACILLIN/TAZO 4.5 GM in SODIUM CHLORIDE 0.9% 100 ML IV ×3 (01:23→18:15)
[2022-07-19] MEDS: HYDROMORPHONE 0.5 MG INJ IV ×3 (05:00→18:25)
[2022-07-19 08:00] VITALS: BP 111/70; PULSE 84; RESP 18; TEMP 36.9; O2SAT 98
[2022-07-19] MEDS: CELECOXIB 200 MG CAPSULE PO ×2 (08:57→21:31)
[2022-07-19] MEDS: GABAPENTIN 300 MG CAPSULE PO ×3 (08:57→21:31)
--- NOTE | 2022-07-19 08:58 | P.PN_ITS ---
Subjective Subjective Date Patient Seen: 07/19/22 Time Patient Seen: 08:58 Interval history: Patient still operator batch or continuous but improved. Exam Vital Signs (past 8 hours): Oxygen Delivery Method Room Air Oxygen Flow Rate 0 Const General: cooperative Nutritional Appearance: well nourished [facility] Head: normocephalic and atraumatic Eyes General: appearance normal, both eyes and all related structures Neck Neck: trachea midline Chest Chest: normal inspection of the chest Cardio Rate: tachycardic Rhythm: regular rhythm GI Other: soft with super pubic tenderness to palpation. Skin General: turgor normal Neuro General: patient alert, patient awake and patient oriented x3 Cognition: normal cognition Psych Judgment: judgment good Objective Labs 07/18/22 09:10 07/17/22 01:45 Labs: Laboratory Results - last 24 hr 07/18/22 09:10 WBC 11.4 H RBC 4.66 Hgb 13.5 Hct 40.0 L MCV 85.9 MCH 29.1 MCHC 33.8 RDW 13.9 Plt Count 204 Neut % (Auto) 89.0 H Lymph % (Auto) 6.3 L [place] % (Auto) 4.5 Eos % (Auto) 0.1 L Baso % (Auto) 0.1 Neut # (Auto) 43209 H Lymph # (Auto) 700 L [place] # (Auto) 500 Eos # (Auto) 0 Baso # (Auto) 0 PFSH Medical History Diverticulitis of intestine with abscess Social History household members: spouse Smoking Status: Current some day smoker Assessment & Plan Assessment & Plan narrative: Perforated diverticulitis w/o good resolution. Plan: some improvement, will continue IV antibiotics. Likely will need sigmoid colectomy this hospital stay. COVID-19 COVID-19 status: Negative Time Spent With Patient Time with patient: 30 to 49 minutes with 50% spent counseling/coordinating care Quality VTE Deep Vein Thrombosis/Pulmonary Embolism Present on Admission: No
[2022-07-19 09:14] LABS: Add Manual Diff / Slide Review NO; Basophils Absolute Auto 0 /uL (0-100); Basophils Percent Auto 0.3 % (0-2); Eosinophils Absolute Auto 0 /uL (0-450); Eosinophils Percent Auto 0.3 % (2-4); Hematocrit 39.5 % (41-53); Hemoglobin 13.7 g/dL (13.5-17.5); Lymphocytes Absolute Auto 900 /uL (1100-4500); Lymphocytes Percent Auto 9.1 % (25-40); Mean Corpuscular HGB Conc 34.6 % (30-36); Mean Corpuscular Hemoglobin 29.4 PG (26-34); Mean Corpuscular Volume 85.1 fL (80-100); Monocytes Absolute Auto 700 /uL (0-900); Monocytes Percent Auto 6.6 % (3-14); Neutrophils Absolute Auto 8600 /uL (1500-7000); Neutrophils Percent Auto 83.7 % (50-75); Platelet Count 199 X10^3/uL (150-400); Red Blood Cell Count 4.64 X10^6/uL (4.5-5.9); Red Cell Distribution Width 14.1 % (11.6-14.8); White Blood Cell Count 10.3 X10^3/uL (4.5-11.0)
[2022-07-19 09:29] LABS: Alanine Aminotransferase 18 IU/L (<50); Albumin 3.3 g/dL (3.5-5.0); Alkaline Phosphatase 64 U/L (38-126); Aspartate Aminotransferase 18 IU/L (17-59); BUN Creatinine Ratio 6.9 (6-22); Bilirubin Total 2.8 mg/dL (0.2-1.3); Blood Urea Nitrogen 6 mg/dL (9-20); Calcium 8.2 mg/dL (8.4-10.2); Carbon Dioxide 26 mmol/L (22-32); Chloride 106 mmol/L (98-107); Estimated Glomerular Filt Rate > 60 mL/min (>60); Globulin 3.2 g/dL (1.7-4.1); Glucose 110 mg/dL (70-100); HEMOLYSIS < 15 (0-50); Potassium 3.7 mmol/L (3.4-5.1); Sodium 137 mmol/L (137-145); Total Protein 6.5 g/dL (6.3-8.2)
--- NOTE | 2022-07-19 09:47 | PC.NURSE ---
Addendum entered by Lotus Osei R.N. 07/19/22 14:23: continues w/ IVF, requested shower this afternoon. family here to visit. Original Note: 0900: NPO d/cd, tolerated general diet. tentative plan for NPO at midnight tonight, for surgery tomorrow for colectomy. reports pain is controlled w/ gabapentin and celebrex. continues w/ IV abx, zosyn currently running.
--- NOTE | 2022-07-19 12:41 | CM.DANOTE ---
Discharge Planning/Care Management Advanced directive, confirm from FAMILY Start: 07/18/22 12:57 Freq: Q24H Status: Active Protocol: Document 07/18/22 12:57 CM (Rec: 07/18/22 13:00 CM [id number]) Advance Directive, confirm on record Time 13:00 Person contacted Pt Copy received No CM Discharge Assessment Start: 07/17/22 14:19 Freq: Status: Active Protocol: Document 07/17/22 14:19 LN (Rec: 07/17/22 14:30 LN [id number]) Discharge Planning Assessment Advance Directives? No Advance Directives on File No History Provided By Patient,Medical Record Has Patient been admitted in last 30 No days? Prior Living Arrangements House Household Members spouse Type of transporation used prior to Drives own vehicle admit Independent with ADL's Yes Is patient alert and oriented? Yes Discharge Plan Home Transportation Arrangement Likely spouse to transport at d/c Referrals Initiated None needed Additional Comment Pending Surgeon recommendations Please Provide Date Initial DC 07/17/22 Assessment Was Performed
--- NOTE | 2022-07-19 12:42 | CM.DPNOTE ---
Discharge Planning Note: Patient to undergo sigmoid colectomy tomorrow. 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 Plan: Discharge home to care of spouse when medically cleared. Shalonda Hidalgo RN/DCP
[2022-07-19] MEDS: SODIUM CHLORIDE 0.9% 1,000 ML 125 ML IV ×2 (13:21→19:47)
[2022-07-19 15:58] VITALS: BP 131/68; PULSE 84; RESP 18; TEMP 37.7; O2SAT 100
[2022-07-19 20:13] VITALS: BP 116/76; PULSE 93; RESP 20; TEMP 37.9; O2SAT 97
[2022-07-19 21:45] VITALS: TEMP 37.9
[2022-07-19] MEDS: ACETAMINOPHEN 325 MG TABLET 650 MG PO (21:45)
[2022-07-19 22:15] VITALS: TEMP 36.8
[2022-07-19] MEDS: CALCIUM CARBONATE 500 MG TAB 1000 MG PO (23:47)
[2022-07-20] VITALS (17 sets, daily range): BP systolic 108–146; BP diastolic 62–89; PULSE 75–93; RESP 14–19; TEMP 36.2–37; O2SAT 96–99; BMI 36.2
--- NOTE | 2022-07-20 | PATH_ITS ---
[facility] Accession Number: [id number] No. of containers..02 Tissue . 01 Material submitted: . PART A: colon - SIGMOID COLON PART B: colon - COLON ANASTAMOSIS RINGLETTS . 01 Clinical history: . PREP FOR COLONOSCOPY/ABD CRAMPING . 01 Diagnosis: A. Sigmoid Colon, Segmental Resection: Diverticulitis with pericolonic abscess and marked serositis. Negative for dysplasia and malignancy. . B. Colon, Anastomosis Ringlets: Portion of colon with focal ischemia-type changes. Negative for dysplasia and malignancy. MRV 07/24/2022 0820 Local . 01 Electronically signed: . Stephany Ramirez MD, Pathologist NPI- [id number] . 01 Gross description: . A. Received in formalin labeled with the patient's name, , and sigmoid colon, and consists of an unoriented segment of colon measuring 5.6 cm in length by 1.7 cm in diameter with a moderate amount of attached hemorrhagic adipose extending out to 2.7 cm. Staple lines are identified at both ends, and one is inked blue while the other is inked black. The mesenteric margin is inked green. The serosa is mostly covered by adipose, is louise, and relatively smooth with a moderate amount of louise adherent material consistent with exudate. The mucosa is congested and slightly edematous with velvety mucosa and otherwise normal-appearing folds. No polyps or lesions are identified, and the garcia average 0.3 cm thick, and are significant for multiple small diverticula measuring up to 0.3 cm in depth with no discrete areas of perforation grossly identified. However, an area of fat measuring up to 2.2 cm in greatest dimension is yellow to hemorrhagic possibly consistent with fat necrosis. Palpation of the adjacent adipose reveals three louise lymph node candidates ranging from 0.3 to 0.7 cm in greatest dimension. [employer] sections are submitted as follows: A1: Blue margin en face. A2: Black margin en face. A3: [employer] Sales[employer] green margin en face. A4-A5: [employer] mucosa with underlying presumed necrotic adipose. A6: Most normal mucosa. A7: Three intact lymph node candidates. B. Received in formalin labeled with the patient's name, , and colon anastomosis ringlets, and consists of two circular fragments of colon. The first measures 2.0 x 1.7 x 1.0 cm and the margin is inked blue. The mucosa is louise and velvety with no lesions grossly identified. The second fragment measures 3.2 x 1.6 x 1.1 cm, and the margin is inked green. The mucosa is louise and velvety with no discrete lesions identified. Sectioning both fragments reveals the garcia to average 0.2 cm thick. [employer] sections of each fragment are submitted in cassettes B1-B2. ([id number]) /KANIKA 07/21/2022 100 Local . 01 Pathologist provided ICD-10: K57.20 . 01 CPT . 581526, 092235 Specimen Comment: A courtesy copy of this report has been sent to [phone] Performed at: 01 [facility] [address] [place] [address], [place], [place] [id number] MD Norman Hughes MD Phone: [phone]
[2022-07-20] MEDS: PIPERACILLIN/TAZO 4.5 GM in SODIUM CHLORIDE 0.9% 100 ML IV ×3 (01:39→18:14)
[2022-07-20] MEDS: ACETAMINOPHEN 325 MG TABLET 650 MG PO ×2 (03:23→20:48)
[2022-07-20] MEDS: SODIUM CHLORIDE 0.9% 1,000 ML 125 ML IV (03:25)
--- NOTE | 2022-07-20 06:21 | DI.CT.S_ITS ---
PROCEDURE: CT ABDOMEN PELVIS W CON INDICATIONS: ABD PAIN TECHNIQUE: After the administration of intravenous contrast, axial sections acquired from the lung bases to the pubic symphysis. Coronal and sagittal reformats were performed. For radiation dose reduction, the following was used: automated exposure control, adjustment of mA and/or kV according to patient size. COMPARISON: [facility], CT, CT ABDOMEN PELVIS W CON, 07/17/2022, 1:55. FINDINGS: Image quality: Good Lower chest: Bibasilar atelectasis, possible small component of airspace disease as well. Trace left pleural effusion. Overall normal heart size. Solid organs: Suspected hepatic steatosis. The liver is otherwise unremarkable. The main portal vein is patent, without portal venous gas in the liver. Gallbladder is unremarkable. No pathologic dilation of the biliary tree or pancreatic duct. No splenomegaly. No discrete adrenal nodules. No hydronephrosis. Vessels and lymph nodes: The main portal vein is patent. No pathologic adenopathy by size criteria. Bowel and peritoneum: Moderate dilation of the proximal small bowel bowl with transition to under distended bowel in the mid ileum in the lower abdomen. Diffuse mesenteric fat stranding, increased from prior. Multiple loculated fluid collections in the lower abdomen/pelvis, for example in the inferior right pericolic gutter measuring 0.2 x 5.9 cm. Another rim enhancing collection is seen in the cul-de-sac. Mild wall thickening of loops of small bowel in the distal aspect. Again seen is wall thickening of the sigmoid colon with suspected contained perforation/small abscess adjacent. Colonic diverticulosis. Body wall: Small fat containing umbilical hernia. Pelvis: Under distended bladder with perivesicular fat stranding, consider correlation with urinalysis. This is not well evaluated on CT. Prostate is unremarkable on limited CT evaluation. Bones: No acute or suspicious osseous abnormality. IMPRESSION: Suspected bowel obstruction versus high-grade ileus, with dilation of proximal bowel and transition to under distended bowel in the mid ileum. A possible transition point is seen in the mid abdomen (axial image 64, as outlined in the perineum report). Sequelae of sigmoid diverticulitis, now with worsening mesenteric inflammation and loculated peritonitis, including rim enhancing fluid collections in the inferior right pericolic gutter, as well as the pelvic cul-de-sac. Other findings as above. No significant discrepancy from the prelim report. Dictated by: Phuc Harris M.D. on 07/20/2022 at 8:08 Approved by: Phuc Harris M.D. on 07/20/2022 at 8:16
--- NOTE | 2022-07-20 07:57 | PC.NURSE ---
Addendum entered by Lotus Osei R.N. 07/20/22 13:13: 1300: left floor in his bed, gown and nonskid socks as instructed by OR. Original Note: 0800: critical CT results received & phoned to Dr aPppas: SBO and possible evolving abscess. patient continues to be NPO, BT active/hyperactive w/ watery BMs. awaiting call for surgery time.
[2022-07-20] MEDS: CELECOXIB 200 MG CAPSULE PO ×2 (10:16→20:48)
[2022-07-20] MEDS: GABAPENTIN 300 MG CAPSULE PO ×2 (10:16→20:48)
[2022-07-20] MEDS: SODIUM CHLORIDE 0.9% FLUSH 10 ML IV (10:17)
--- NOTE | 2022-07-20 11:17 | PM.PREOP ---
Pre-operative Note COVID-19 COVID-19 status: Negative Criteria for continued procedure: Expected advancement of disease process Interval Note History & Physical reviewed/Exam performed by Physician: Yes Changes to H&P: Yes H&P completed within 30 days and has changed as indicated here:: advancement of disease with right sided abscess in pelvis. Plan on open sigmoid colectomy with possibility of diverting colostomy.
[2022-07-20] MEDS: CALCIUM CARBONATE 500 MG TAB 1000 MG PO (12:39)
--- NOTE | 2022-07-20 14:04 | SUR.OPER ---
Supine on padded OR bed, head on pillow, arms secured on padded arm boards at <90 degrees abduction, legs uncrossed, safety belt at thigh, tape over blanket over lower legs.
[2022-07-20] MEDS: TRANEXAMIC ACID 1,000 MG in SODIUM CHLORIDE 0.9% 100 ML 200 MG IV (14:17)
[2022-07-20] MEDS: LACTATED RINGERS 1,000 ML 42 ML IV (14:24)
--- NOTE | 2022-07-20 15:37 | PM.OP.1 ---
Operative Date/Time/Diagnoses Date of procedure: 07/20/22 Time of procedure: 15:37 Pre-op diagnosis: Perforated diverticulitis Post-op diagnosis: same Procedure & Clinicians Procedure: Exploratory laparotomy with sigmoid colectomy and lysis of adhesions Same procedure as scheduled: Yes Indications: Perforated diverticulitis small-bowel obstruction Surgeon: Shayy Pappas Click Yes if Unassisted: Yes Anesthesia Type: General Operative Notes Findings: Inflamed portion of colon. Small bowel obstruction related to intense inflammatory process in the mid to right lower quadrant. And large fluid collections with cloudy fluid but no overt abscess. Closure Type: primary Specimen(s): other (Sigmoid colon. Colonic rings) Applied: drain(s) (19. Drain intra-abdominal, 10. Nicaraguan drain in subcutaneous tissue) Estimated Blood Loss (mL): 200 Blood products transfused: none Procedure in detail: Preop diagnosis: Perforated diverticulitis, small-bowel obstruction Postop diagnosis: Same Operative procedure: Exploratory laparotomy with lysis of adhesions and sigmoid colon resection Surgeon Shayy Pappas MD Anesthetic: ET tube intubation with general anesthetic Findings: Short segment of affected sigmoid colon. Small bowel obstruction related to intense inflammatory reaction. Large cloudy fluid collections no overt abscess Procedure: Patient placed in a lithotomy position. Prepped and draped in sterile fashion to expose his abdomen. Lower midline incision was created using electrocautery and open technique. Sigmoid colon was mobilized to affected area. The left colic gutter was mobilized along the line of Toldt. Number 75 linear stapler blue load was used for transection both proximal and distal to the affected area of colon. Mesentery was taken down with LigaSure device. Hemostasis also addressed using dose of TXA during the procedure along with electrocautery. I was able to reanastomose colon using a using end-to-side EEA stapling device number 31. Anastomosis was interrogated with air showing no leak. We had 2 robust rings however 1 was possibly during its pulled from the stapling device versus not completely intact. The staple line anteriorly was oversewn with interrupted 3-0 silk suture. I then ran the small bowel to alleviate the small bowel obstruction related to inflammatory process. Abdomen was irrigated to a clear return. Omentum was pulled down across the small bowel after having placed a 19. Round drain into the pelvis and bring it out to the left side. Fascia was closed with a running looped 0 PDS. Skin was closed with surgical tanvir having placed a 10 Nicaraguan drain in the subcutaneous tissue bringing it out to the left side of the patient. Both drains were sutured to the anterior abdominal wall with 2-0 nylon. Sterile dressings were placed. Patient was awakened, extubated, taken to recovery room in stable condition. Needle, instrument, sponge counts were correct. Blood loss: 200 mL Specimen: Sigmoid colon and colonic rings Complications: none Post-operative Condition: stable Disposition: PACU
[2022-07-20] MEDS: HYDROMORPHONE 2 MG INJ IV ×2 (16:10→16:19)
[2022-07-20] MEDS: ONDANSETRON 4 MG/2 ML INJ IV (16:10)
[2022-07-20] MEDS: LACTATED RINGERS 1,000 ML 100 ML IV (16:22)
--- NOTE | 2022-07-20 17:10 | PC.NURSE ---
Patient received from PACU to room 202. His at bedside. Patient sleepy but denying pain at this time. VSS. Patient arrived on 2L NC from PACU. [address] (labeled #1 and #2). Torres in place draining clear dark yellow urine. Call light within reach. Continue to monitor.
[2022-07-20] MEDS: DEXTROSE 5%-0.9% NS 1,000 ML 150 ML IV (18:13)
[2022-07-20] MEDS: fentaNYL 25 MCG/PATCH TOP (18:21)
--- NOTE | 2022-07-20 18:45 | PC.NURSE ---
Confirmed current medication orders with Dr. Pappas over the phone to verify that patient is still NPO except ok for medications. Dr. Pappas states she did discuss with the pharmacists that celebrex, gabapentin, tums, and tylenol are to continue upon transfer, along with fentanyl patch as ordered with addition of oxycodone (prn) for breakthrough pain (TORB placed). Patient is sleepy, but wakes easily, without current complaint at this time. Call light within reach. Torres and [address] and intact.
--- NOTE | 2022-07-20 21:09 | PC.NURSE ---
Patient is alert and oriented but still drowsy post-op. Breath sounds CTA. Is on oxygen at 2L/min with sat of 97% so now decreased to 1.5L/min; is on continuous oximetry. HRR. Denies nausea. Remains NPO except for meds. BT absent at this time. Dressing to abdomen is CDI w/ELIEL's x2 intact and compressed. Indwelling catheter is patent; urine is clear orange/mayra color. Needing assistance to reposition in bed but declines to lie on sides due to abdominal discomfort. Not out of bed as yet post-op so gait not assessed. States pain is currently at 7/10 but feels it is tolerable; medicated with scheduled Celebrex, Gabapentin and Tylenol. Instructed to CDB and splinting; verbalizes understanding. Fall risk score is low.
[2022-07-21] VITALS (7 sets, daily range): BP systolic 113–132; BP diastolic 60–85; PULSE 78–87; RESP 16–18; TEMP 36.2–37.5; O2SAT 94–98
[2022-07-21] MEDS: DEXTROSE 5%-0.9% NS 1,000 ML 150 ML IV ×2 (00:20→06:45)
[2022-07-21] MEDS: HYDROMORPHONE 0.5 MG INJ IV (00:53)
[2022-07-21] MEDS: PIPERACILLIN/TAZO 4.5 GM in SODIUM CHLORIDE 0.9% 100 ML IV ×2 (00:53→09:19)
[2022-07-21 08:21] LABS: Add Manual Diff / Slide Review NO; Basophils Absolute Auto 0 /uL (0-100); Basophils Percent Auto 0.1 % (0-2); Eosinophils Absolute Auto 0 /uL (0-450); Hematocrit 36.4 % (41-53); Hemoglobin 12.5 g/dL (13.5-17.5); Lymphocytes Absolute Auto 700 /uL (1100-4500); Lymphocytes Percent Auto 6.9 % (25-40); Mean Corpuscular HGB Conc 34.2 % (30-36); Mean Corpuscular Hemoglobin 29.3 PG (26-34); Mean Corpuscular Volume 85.7 fL (80-100); Monocytes Absolute Auto 800 /uL (0-900); Monocytes Percent Auto 7.6 % (3-14); Neutrophils Absolute Auto 9100 /uL (1500-7000); Neutrophils Percent Auto 85.4 % (50-75); Platelet Count 243 X10^3/uL (150-400); Red Blood Cell Count 4.25 X10^6/uL (4.5-5.9); White Blood Cell Count 10.7 X10^3/uL (4.5-11.0)
[2022-07-21 08:35] LABS: Alanine Aminotransferase 21 IU/L (<50); Albumin 2.6 g/dL (3.5-5.0); Albumin Globulin Ratio 0.9 (1.0-2.8); Alkaline Phosphatase 133 U/L (38-126); Aspartate Aminotransferase 23 IU/L (17-59); BUN Creatinine Ratio 7.9 (6-22); Bilirubin Total 1.5 mg/dL (0.2-1.3); Blood Urea Nitrogen 5 mg/dL (9-20); Calcium 7.5 mg/dL (8.4-10.2); Carbon Dioxide 22 mmol/L (22-32); Chloride 111 mmol/L (98-107); Estimated Glomerular Filt Rate > 60 mL/min (>60); Globulin 2.8 g/dL (1.7-4.1); Glucose 153 mg/dL (70-100); HEMOLYSIS < 15 (0-50); Potassium 3.5 mmol/L (3.4-5.1); Sodium 139 mmol/L (137-145); Total Protein 5.4 g/dL (6.3-8.2)
[2022-07-21] MEDS: GABAPENTIN 300 MG CAPSULE PO ×3 (09:20→20:47)
[2022-07-21] MEDS: CELECOXIB 200 MG CAPSULE PO ×2 (09:20→20:47)
[2022-07-21] MEDS: ACETAMINOPHEN 325 MG TABLET 650 MG PO ×3 (09:21→20:47)
[2022-07-21] MEDS: POTASSIUM CHLORIDE 20 MEQ TAB 40 MEQ PO (10:40)
[2022-07-21] MEDS: SODIUM CHLORIDE 0.9% 1,000 ML 100 ML IV ×2 (12:04→22:16)
--- NOTE | 2022-07-21 14:08 | PM.PNPO.1 ---
Subjective Subjective Date Patient Seen: 07/21/22 Time Patient Seen: 14:08 Interval history: feeling better Exam Vital Signs (past 8 hours): - 07/21/22 09:13 07/21/22 13:14 Temperature 97.3 F L 97.5 F L Pulse Rate 79 84 Respiratory Rate 18 18 Blood Pressure 115/69 129/80 Pulse Oximetry 96 97 Oxygen Flow Rate 0 0 Fraction of Inspired Oxygen 28 SaO2/FiO2 Ratio 350 Oxygen Delivery Method Nasal Cannula Oxygen Flow Rate 0 Narrative Exam Narrative: drains serous, wound intact. abd benign Objective Labs 07/21/22 07:40 07/21/22 07:40 Labs: Laboratory Results - last 24 hr 07/21/22 07/21/22 07:40 07:40 WBC 10.7 RBC 4.25 L Hgb 12.5 L Hct 36.4 L MCV 85.7 MCH 29.3 MCHC 34.2 RDW 14.0 Plt Count 243 Neut % (Auto) 85.4 H Lymph % (Auto) 6.9 L [place] % (Auto) 7.6 Eos % (Auto) 0.0 L Baso % (Auto) 0.1 Neut # (Auto) 9100 H Lymph # (Auto) 700 L [place] # (Auto) 800 Eos # (Auto) 0 Baso # (Auto) 0 Sodium 139 Potassium 3.5 Chloride 111 H Carbon Dioxide 22 BUN 5 L Creatinine 0.63 L Estimated GFR > 60 BUN/Creatinine Ratio 7.9 Glucose 153 H Calcium 7.5 L Total Bilirubin 1.5 H AST 23 ALT 21 Alkaline Phosphatase 133 H D Total Protein 5.4 L Albumin 2.6 L Globulin 2.8 Albumin/Globulin Ratio 0.9 L PFSH Medical History Diverticulitis of intestine with abscess Social History household members: spouse Smoking Status: Current some day smoker Assessment & Plan Post-op Postoperative Procedures: Procedures Operation Date: 07/20/22 13:45 Actual Procedure Side Surgeon p Exploratory Laparotomy GEN - sigmoid colectomy Shayy Pappas MD Postoperative status: doing well Postoperative status narrative: no postop complication Postoperative plan narrative: clear liquid diet change IV to NS @100/hr remove mendoza continue antibiotics Quality VTE Deep Vein Thrombosis/Pulmonary Embolism Present on Admission: No
--- NOTE | 2022-07-21 14:30 | CM.DPC ---
DCP Cont: Per Surgeon, pt tolerated surgical intervention well and seems to have pain managed and to discontinue mendoza today and remains on IV-Abx and clear liquid diet. To begin slowly advancing diet as tolerated when appropriate. Plan: SW to follow for eventual advancing of pt's diet when medically appropriate towards confirming safe d/c home with spouse. Pt active and independ at baseline. ARPIT Louie
[2022-07-21] MEDS: PIPERACILLIN/TAZO 3.375 GM in SODIUM CHLORIDE 0.9% 100 ML IV (16:11)
[2022-07-21] MEDS: CALCIUM CARBONATE 500 MG TAB 1000 MG PO (19:11)
[2022-07-22] MEDS: PIPERACILLIN/TAZO 3.375 GM in SODIUM CHLORIDE 0.9% 100 ML IV (01:17)
[2022-07-22] MEDS: ACETAMINOPHEN 325 MG TABLET 650 MG PO ×4 (04:38→20:07)
[2022-07-22 04:39] VITALS: BP 105/65; PULSE 75; RESP 19; TEMP 36.6; O2SAT 95
[2022-07-22 06:01] LABS: BUN Creatinine Ratio 7.3 (6-22); Blood Urea Nitrogen 6 mg/dL (9-20); Calcium 7.6 mg/dL (8.4-10.2); Carbon Dioxide 26 mmol/L (22-32); Chloride 109 mmol/L (98-107); Estimated Glomerular Filt Rate > 60 mL/min (>60); Glucose 96 mg/dL (70-100); HEMOLYSIS < 15 (0-50); Potassium 3.5 mmol/L (3.4-5.1); Sodium 139 mmol/L (137-145)
[2022-07-22 06:06] LABS: Add Manual Diff / Slide Review NO; Basophils Absolute Auto 0 /uL (0-100); Basophils Percent Auto 0.5 % (0-2); Eosinophils Absolute Auto 100 /uL (0-450); Eosinophils Percent Auto 1.2 % (2-4); Hematocrit 33.1 % (41-53); Hemoglobin 11.3 g/dL (13.5-17.5); Lymphocytes Absolute Auto 1600 /uL (1100-4500); Lymphocytes Percent Auto 21.7 % (25-40); Mean Corpuscular HGB Conc 34.2 % (30-36); Mean Corpuscular Hemoglobin 29.1 PG (26-34); Monocytes Absolute Auto 800 /uL (0-900); Monocytes Percent Auto 10.4 % (3-14); Neutrophils Absolute Auto 5000 /uL (1500-7000); Neutrophils Percent Auto 66.2 % (50-75); Platelet Count 266 X10^3/uL (150-400); Red Cell Distribution Width 14.5 % (11.6-14.8); White Blood Cell Count 7.5 X10^3/uL (4.5-11.0)
[2022-07-22] MEDS: PANTOPRAZOLE DR 40 MG TABLET PO ×2 (07:50→20:07)
[2022-07-22] MEDS: GABAPENTIN 300 MG CAPSULE PO ×3 (08:49→20:05)
[2022-07-22] MEDS: AMOXICILLIN/CLAV 875/125 MG 1 TAB PO ×2 (08:49→20:05)
[2022-07-22] MEDS: CELECOXIB 200 MG CAPSULE PO ×2 (08:49→20:05)
[2022-07-22 09:28] VITALS: BP 120/80; PULSE 78; RESP 16; TEMP 36.2; O2SAT 96
[2022-07-22] MEDS: POTASSIUM CHLORIDE 20 MEQ TAB 40 MEQ PO (12:10)
--- NOTE | 2022-07-22 12:53 | PM.PNPO.1 ---
Subjective Subjective Date Patient Seen: 07/22/22 Time Patient Seen: 12:54 Interval history: pain well controlled, no flatus or stool. Tolerating clear liquids Exam Vital Signs (past 8 hours): - 07/22/22 09:28 Temperature 97.1 F L Pulse Rate 78 Respiratory Rate 16 Blood Pressure 120/80 Pulse Oximetry 96 Fraction of Inspired Oxygen 28 SaO2/FiO2 Ratio 350 Oxygen Delivery Method Nasal Cannula Oxygen Flow Rate 0 Narrative Exam Narrative: Abdomen is soft, wound intact. drains are serous. Objective Labs 07/22/22 05:41 07/22/22 05:41 Labs: Laboratory Results - last 24 hr 07/22/22 07/22/22 05:41 05:41 WBC 7.5 RBC 3.90 L Hgb 11.3 L Hct 33.1 L MCV 85.0 MCH 29.1 MCHC 34.2 RDW 14.5 Plt Count 266 Neut % (Auto) 66.2 Lymph % (Auto) 21.7 L Alexander % (Auto) 10.4 Eos % (Auto) 1.2 L Baso % (Auto) 0.5 Neut # (Auto) 5000 Lymph # (Auto) 1600 Alexander # (Auto) 800 Eos # (Auto) 100 Baso # (Auto) 0 Sodium 139 Potassium 3.5 Chloride 109 H Carbon Dioxide 26 BUN 6 L Creatinine 0.82 Estimated GFR > 60 BUN/Creatinine Ratio 7.3 Glucose 96 Calcium 7.6 L PFSH Medical History Diverticulitis of intestine with abscess Social History household members: spouse Smoking Status: Current some day smoker Assessment & Plan Post-op Postoperative Procedures: Procedures Operation Date: 07/20/22 13:45 Actual Procedure Side Surgeon p Exploratory Laparotomy GEN - sigmoid colectomy Shayy Pappas MD Postoperative status: doing well and post-op ileus Postoperative status narrative: post op ileus. no complications s/p sigmoid colectomy Postoperative plan narrative: saline lock remove drains await bowel function Time Spent With Patient Time with patient: 15-24 minutes Quality VTE Deep Vein Thrombosis/Pulmonary Embolism Present on Admission: No
[2022-07-22] MEDS: CALCIUM CARBONATE 500 MG TAB 1000 MG PO ×2 (13:51→22:28)
--- NOTE | 2022-07-22 17:06 | PC.NURSE ---
Pt sitting up in chair. Pharmacist Zaira spoke with Dr. Pappas about removing Fentanyl patch now to make sure Pt had good pain control. Patch removed and placed in [facility] in med room on [facility].
[2022-07-22 19:24] VITALS: BP 134/86; PULSE 78; RESP 17; TEMP 37.3; O2SAT 97
[2022-07-22] MEDS: SODIUM CHLORIDE 0.9% FLUSH 10 ML IV (20:06)
[2022-07-23] MEDS: ACETAMINOPHEN 325 MG TABLET 650 MG PO (03:18)
[2022-07-23] MEDS: SODIUM CHLORIDE 0.9% FLUSH 10 ML IV ×2 (03:19→09:22)
[2022-07-23 03:34] VITALS: BP 119/80; PULSE 76; RESP 16; TEMP 36.6; O2SAT 95
[2022-07-23] MEDS: PANTOPRAZOLE DR 40 MG TABLET PO (06:08)
--- NOTE | 2022-07-23 09:04 | CM.DPC ---
DCP Cont: Met with patient, for it is noted he was not aware of home health services, or what they do. Explained that home health provides services, such as nursing, if needed, but for people that are home bound. He indicated, he does not think that he will need home health, he will still be driving when able, and can follow up at the [facility] for any needs. Patient is living in the [facility] on [facility]. Vanda, BREAN[employer] elementary assistant teacher, went ahead and called [place]ell at [facility] to update him. P: DCP to continue to follow. Plan is home when medically stable, could be today. Estela Monsivais RN/[employer]
[2022-07-23] MEDS: GABAPENTIN 300 MG CAPSULE PO ×2 (09:16→15:26)
[2022-07-23] MEDS: CELECOXIB 200 MG CAPSULE PO (09:16)
[2022-07-23] MEDS: AMOXICILLIN/CLAV 875/125 MG 1 TAB PO (09:16)
[2022-07-23 10:35] VITALS: BP 132/85; PULSE 77; RESP 18; TEMP 36.7; O2SAT 96
--- NOTE | 2022-07-23 12:52 | PM.PN.1 ---
Subjective Subjective Date Patient Seen: 07/23/22 Time Patient Seen: 12:52 Interval history: Gene has tolerated his clear liquid diet without difficulty. He has had multiple bowel movements today. Exam Vital Signs (past 8 hours): - 07/23/22 10:35 Temperature 98.1 F Pulse Rate 77 Respiratory Rate 18 Blood Pressure 132/85 Pulse Oximetry 96 Oxygen Flow Rate 0 Fraction of Inspired Oxygen 28 SaO2/FiO2 Ratio 350 Oxygen Delivery Method Nasal Cannula Oxygen Flow Rate 0 Narrative Exam Narrative: Abdomen soft, nontender Objective Labs 07/22/22 05:41 07/22/22 05:41 ON LICENSE OF [facility] Medical History Diverticulitis of intestine with abscess Social History household members: spouse Smoking Status: Current some day smoker Assessment & Plan Assessment and plan (1) Diverticular disease of intestine with perforation and abscess: Status: Acute Plan Advance to regular diet for lunch and if he tolerates it he can be discharged today or tomorrow Quality VTE Deep Vein Thrombosis/Pulmonary Embolism Present on Admission: No
--- NOTE | 2022-07-23 14:07 | PC.NURSE ---
Addendum entered by Nicole Mims R.N. 07/23/22 17:20: Pt transportation here Pt escorted by staff via W/C to waiting vehicle D/C in stable status. Original Note: Pt independent in room. Denies discomfort. HL intact/patent Abd dsg from ELIEL x 2 CDI. Had general meal for lunch, tolerating at this time. May possibly D/C this afternoon. Call light w/in reach, Pt calls appropriately for needs. Continue w/plan of care.
--- NOTE | 2022-07-23 15:11 | PM.DS.1 ---
History of Present Illness History of Present Illness Chief complaint: Prep for colonoscopy/abd.cramping Discharge Providers Provider Date of admission: 07/18/22 14:17 Discharge Date: 07/23/22 Primary care physician: Helen PÉREZ Provider Consults: 07/17/22 02:48 Consult to General Surgery Urgent Comment: Consulting Provider: Shayy Pappas Reason for consultation: diverticular perforation Has provider been notified: Yes Discharge provider: Cleveland Haley MD Summary Hospital Course Discharge Diagnosis: Diverticulitis Hospital Course: Patient underwent a sigmoid resection by Dr. Pappas and was discharged home once he was tolerating a regular diet and having bowel function. Exam Vital Signs (past 8 hours): - 07/23/22 10:35 Temperature 98.1 F Pulse Rate 77 Respiratory Rate 18 Blood Pressure 132/85 Pulse Oximetry 96 Oxygen Flow Rate 0 Fraction of Inspired Oxygen 28 SaO2/FiO2 Ratio 350 Oxygen Delivery Method Nasal Cannula Oxygen Flow Rate 0 Objective Labs 07/22/22 05:41 07/22/22 05:41 PFSH Medical History Diverticulitis of intestine with abscess Social History household members: spouse Smoking Status: Current some day smoker Discharge Plan Discharge Plan Patient Disposition: Home Provider Discharge Comment: Call [facility] to schedule an appointment to have your tanvir removed in 2 weeks Discharge orders & Medications Prescriptions: New hydrocodone-acetaminophen 5-325 mg tablet 1 tab PO Q8H PRN (Reason: pain) Qty: 14 0RF Continued ibuprofen 600 mg Tablet 600 mg PO Q6H Qty: 30 0RF Metamucil Fiber Singles 3.4 gram Powder In Packet 1 packet PO BID Qty: 44 0RF Follow up/Referrals: ProviderHelen [Primary Care Provider] - Visit Report/Discharge Packet Stand Alone Forms: Patient Portal/API, Stroke Signs & Symptoms Discharge Data Primary Care Provider: Helen Abel Quality VTE Deep Vein Thrombosis/Pulmonary Embolism Present on Admission: No
== END 2022-07-23 16:55 | disposition home or self-care (01) | DRG 330 ==
LOC: ED 00:47 → AC 02:48
PROVIDERS: Admitting Provider Surgery; Emergency Provider Surgery; Referring Provider Emergency Medicine; Visit Provider Surgery
PROC: 0DTN0ZZ Resection of Sigmoid Colon, Open Approach (ICD-10-PCS; CPT 49000; principal; 2022-07-20 13:45)
DX: K57.20 Diverticulitis of large intestine with perforation and abscess without bleeding (principal); K56.7 Ileus, unspecified; K91.89 Other postprocedural complications and disorders of digestive system; Z20.822 Contact with and (suspected) exposure to COVID-19; F17.210 Nicotine dependence, cigarettes, uncomplicated
CPT/HCPCS: 36415; 44140; 74019; 74177; 80048; 80053; 85025; 87635; 94762; 96365; 96366; 96375; 99222; 99284; C9803; G0378; J0330; J1100; J1170; J2250; J2405; J2543; J2704; J3010; Q9967

== ENCOUNTER 2023-04-22 11:25 | Day surgery (SDC) | payer OTHER, SELFPAY ==
[2023-04-22 11:48] VITALS: BMI 37.6
[2023-04-22 12:00] VITALS: BP 111/75; PULSE 80; RESP 17; TEMP 36.8; O2SAT 97
[2023-04-22] MEDS: LACTATED RINGERS 1,000 ML 42 ML IV (12:06)
--- NOTE | 2023-04-22 13:09 | PM.HP.1 ---
History of Present Illness History of Present Illness Date Patient Seen: 04/22/23 Time Patient Seen: 13:09 Chief complaint: SDC Narrative: Gene is a 37 year old man who had a sigmoid colectomy for diverticulitis last year. He also has a family history of colon cancer in his father. He has never had a colonoscopy himself. [facility] Medical History (Updated 04/22/23 @ 13:10 by Cleveland Haley MD) History of chlamydia Decreased sperm motility Decreased libido Infertility Diverticulitis of intestine with abscess Surgical History H/O colectomy Family History Grandfather Cancer Coronary artery disease Grandmother Cancer Diabetes mellitus Father Cancer Mother Cancer Aunt Diabetes mellitus Social History household members: spouse Previous occupational history: [employer] Smoking Status: Current some day smoker Tobacco: How many years used: 12 Smokeless tobacco user: other alcohol intake: current caffeine: Yes Type(s) of exercise: aerobic and weight lifting frequency: 3-4 times per week Meds Home Medications and Allergies Home Medications Medication Instructions Recorded Confirmed Type ibuprofen 600 mg tablet 600 mg PO Q6H #30 tabs 06/02/22 04/22/23 Rx Allergies Allergy/AdvReac Type Severity Reaction Status Date / Time No Known Drug Allergies Allergy Verified 04/22/23 11:42 Exam Vital Signs (past 8 hours): - 04/22/23 12:00 Temperature 98.2 F Pulse Rate 80 Respiratory Rate 17 Blood Pressure 111/75 Pulse Oximetry 97 Oxygen Delivery Method Room Air Oxygen Delivery Method Room Air Const General: healthy appearing and No acute distress Resp Effort & Inspection: normal respiratory effort Assessment & Plan Assessment and plan (1) Family history of colon cancer: Status: Acute Plan We reviewed the risks and benefits of colonoscopy for a family history of colon cancer and he would like to proceed.
--- NOTE | 2023-04-22 14:11 | P.OP.COLON_ITS ---
Operative Date/Time/Diagnoses Date of procedure: 04/22/23 Time of procedure: 14:11 Pre-op diagnosis: Family history of colon cancer Post-op diagnosis: same Procedure & Clinicians Study performed: Colonoscopy Same procedure as scheduled: Yes Surgeon: Cleveland Haley Procedure Notes Procedure in detail: Surgeon: Cleveland Haley MD Anesthesia: Bogdan Treviño D.O. Procedure: The patient was brought to the endoscopy suite, placed in left lateral decubitus position. The patient was connected to monitoring devices. A time-out was performed. Sedation was administered. Once the patient was adequately sedated, a digital rectal exam was performed and was normal. The scope was then inserted and advanced to the cecum where the appendiceal orifice was identified and photographed. The terminal ileum was intubated and no abnormalities were seen. The scope was then slowly withdrawn over greater than 6 minutes. The mucosa was thoroughly inspected. No polyps or diverticula were seen. The anastomosis was seen and appeared normal. The scope was retroflexed in the rectum. No rectal abnormalities were seen. The scope was straightened and removed. The patient was awakened and brought to recovery. Scope withdrawal time: 9 minutes Sedation time: 12 minutes EBL: 0 Findings: Normal colon, normal looking anastomosis Post-procedure Recommendations: Colonoscopy in 5 years Plan for aftercare: Next colonoscopy in 5 years due to a family history of colon cancer in a first- degree relative under the age of 70 Disposition: PACU
[2023-04-22 14:13] VITALS: BP 112/74; PULSE 96; RESP 16; O2SAT 98
[2023-04-22 14:17] VITALS: BP 112/77; PULSE 100; RESP 16; TEMP 36.7; O2SAT 98
== END 2023-04-22 14:45 | disposition home or self-care (01) ==
PROVIDERS: Referring Provider Surgery; Visit Provider Surgery
PROC: 0DJD8ZZ Inspection of Lower Intestinal Tract, Via Natural or Artificial Opening Endoscopic (ICD-10-PCS; CPT 45378; principal; 2023-04-22 12:45)
DX: Z12.11 Encounter for screening for malignant neoplasm of colon (principal); Z80.0 Family history of malignant neoplasm of digestive organs
CPT/HCPCS: 45378; J2704